=== PATIENT | female | born 1975 | race Caucasian/White ===

== ENCOUNTER 2017-06-02 18:05 | Emergency (ER) | payer MEDICAID, OTHER ==
[~2017-06-02] VITALS: Ht 165.1 cm; Wt 65.0 kg
[2017-06-02] MEDS ORDERED: ALBU18HF2 IH (18:08)
[2017-06-02] MEDS ORDERED: PARO-41 PO (18:08)
[2017-06-02] MEDS ORDERED: LEVO25TA7 PO (18:08)
[2017-06-02] MEDS ORDERED: ACETAMINOPHEN 500MG TABLET PO ONE (18:45)
[2017-06-02 21:49] VITALS: BP 110/65
== END 2017-06-02 21:51 | disposition home or self-care (01) ==
LOC: ER 18:31
DX: M54.2 Cervicalgia (principal); M54.5 Low back pain; J45.909 Unspecified asthma, uncomplicated; E03.9 Hypothyroidism, unspecified; Z88.0 Allergy status to penicillin; V89.2XXA Person injured in unspecified motor-vehicle accident, traffic, initial encounter; Y93.89 Activity, other specified; Y92.89 Other specified places as the place of occurrence of the external cause; Y99.8 Other external cause status
CPT/HCPCS: 72100; 81025; 99284

== ENCOUNTER 2018-02-13 20:53 | Emergency (ER) | payer MEDICAID ==
[~2018-02-13] VITALS: Ht 157.5 cm; Wt 82.0 kg
[~2018-02-13 20:53] MED LIST: ALBU18HF2 IH; LEVO25TA7 PO; PARO-41 PO
[2018-02-13] MEDS ORDERED: NITROGLYCERIN OINT 1GM/INCH UDPKT TD ONE (23:00)
[2018-02-13] MEDS ORDERED: ASPIRIN 325MG TABLET PO ONE (23:00)
[2018-02-13 23:28] LABS: CHLORIDE 105 mEq/L (98-107)
[2018-02-13 23:32] LABS: BASOPHILS % 0.7 % (0.0-2.0); HCG SCREEN NEGATIVE; HEMATOCRIT. 37.9 % (36.0-48.0); HEMOGLOBIN. 12.8 g/dL (12.0-16.0); LYMPHOCYTES % 32.9 % (20.0-50.0); MEAN CORPUSCULAR HEMOGLOBIN 29.7 pg (28.0-32.0); MEAN CORPUSCULAR VOLUME 87.7 fL (81.0-99.0); MEAN PLATELET VOLUME 8.3 fl (7.4-10.4); MONOCYTES % 5.9 % (2.0-8.0); NEUTROPHILS % 57.5 % (40.0-76.0); PLATELET 284 x1000/uL (130-400); RED BLOOD CELL COUNT 4.32 mill/uL (4.2-5.4)
[2018-02-13 23:35] LABS: D-DIMER 0.46 mg/L FEU (<0.50); INR 1.1; PARTIAL THROMBOPLASTIN TIME 30.8 sec (23.4-31.0); PROTHROMBIN TIME 11.5 sec (9.4-11.6)
[2018-02-14] MEDS ORDERED: LORAZEPAM 0.5MG TABLET PO ONE
[2018-02-14 01:15] VITALS: BP 99/59
== END 2018-02-14 01:15 | disposition home or self-care (01) ==
LOC: ER 20:53
DX: F41.1 Generalized anxiety disorder (principal); R03.0 Elevated blood-pressure reading, without diagnosis of hypertension; E03.9 Hypothyroidism, unspecified; J45.909 Unspecified asthma, uncomplicated; Z88.0 Allergy status to penicillin; Z86.59 Personal history of other mental and behavioral disorders; Z98.84 Bariatric surgery status
CPT/HCPCS: 36415; 71045; 80053; 83690; 84484; 84703; 85025; 85379; 85610; 85730; 93005; 99285; Z7610